=== PATIENT | female | born 1935 | race Caucasian/White ===

== ENCOUNTER 2022-11-26 13:23 | Inpatient (IN) ==
[2022-11-26] MEDS ORDERED: ONDANSETRON 4 MG/2 ML VIAL IV ONE (14:20)
[2022-11-26 14:22] LABS: POC Calcium, Ionized 1.14 (1.16-1.32); POC Creatinine 0.5 (0.6-1.2); POC Potassium 3.2 (3.3-5.1)
[2022-11-26] MEDS ORDERED: 0.9 % SODIUM CHLORIDE 1,000 ML IV ONE (14:52)
[2022-11-26] MEDS ORDERED: morphine 4 MG/ML VIAL IV ONE (14:52)
[2022-11-26] MEDS ORDERED: ZOLPIDEM 5 MG TABLET PO PRN (17:24)
[2022-11-26] MEDS ORDERED: HYDROmorphone 1 MG/ML SYRINGE IV PRN (17:24)
[2022-11-26] MEDS ORDERED: ONDANSETRON 4 MG/2 ML VIAL IV PRN (17:24)
[2022-11-26] MEDS ORDERED: ALPRAZolam 0.5 MG TABLET PO PRN (17:29)
[2022-11-26] MEDS ORDERED: ALTEPLASE 2 MG VIAL IV PRN (17:35)
[2022-11-26] MEDS ORDERED: 0.9 % SODIUM CHLORIDE 10 ML SYRINGE IV PRN (17:35)
[2022-11-26] MEDS: 0.9 % SODIUM CHLORIDE 1,000 ML IV SCH ×2 (17:44→18:42)
[2022-11-26] MEDS ORDERED: 0.9 % SODIUM CHLORIDE 250 ML IV SCH (17:45)
[2022-11-26] MEDS: 0.9 % SODIUM CHLORIDE 10 ML SYRINGE IV SCH ×2 (20:24)
[2022-11-27] MEDS: 0.9 % SODIUM CHLORIDE 1,000 ML IV SCH ×3 (02:57→17:09)
[2022-11-27 07:12] LABS: Basophils # (Auto) 0.03 K/mcL (0.00-0.30); Basophils % (Auto) 0.3 % (0.0-2.0); Eosinophils % (Auto) 1.8 % (0.0-7.0); Hematocrit 32.1 % (34.1-44.9); Hemoglobin 10.2 g/dL (11.2-15.7); Lymphocytes # (Auto) 2.38 K/mcL (1.50-4.80); Lymphocytes % (Auto) 21.7 % (15.5-49.0); Mean Corpuscular HGB Conc 31.8 g/dL (31.0-36.0); Mean Platelet Volume 8.5 fL (8.8-12.5); Monocytes % (Auto) 12.8 % (1.0-12.0); Platelet Count 345 K/mcL (140-440); RBC 3.69 M/mcL (3.59-5.38); Red Cell Distribution Width 17.1 % (11.5-14.5)
[2022-11-27 07:31] LABS: INR 1.1 (0.9-1.1); Partial Thromboplastin Time 32.6 sec (20.0-37.0); Prothrombin Time 14.2 sec (11.9-14.5)
[2022-11-27] MEDS: PANTOPRAZOLE 40 MG VIAL IV SCH ×2 (07:37→17:09)
[2022-11-27] MEDS: 0.9 % SODIUM CHLORIDE 10 ML SYRINGE IV SCH ×5 (07:38→20:19)
[2022-11-27] MEDS: LEVOTHYROXINE 75 MCG TABLET PO SCH (07:38)
[2022-11-27 08:14] LABS: ALT/SGPT 9 U/L (<40); AST/SGOT 16 U/L (<32); Albumin 2.7 gm/dL (3.2-5.2); Albumin/Globulin Ratio 0.8 (1.0-2.3); Alkaline Phosphatase 74 U/L (39-117); Bilirubin,Direct < 0.2 mg/dL (0-0.3); Bilirubin,Total 0.3 mg/dL (0.1-1.0); Blood Urea Nitrogen 6 mg/dL (8-23); Calcium 7.8 mg/dL (8.6-10.4); Carbon Dioxide 24 mmol/L (22-30); Chloride 104 mmol/L (96-108); Globulin 3.6 gm/dL (2.2-3.7); Glomerular Filtration Rate 86; Glucose 97 mg/dL (70-105); Lactate Dehydrogenase 187 U/L (135-225); Phosphorous 2.1 mg/dL (2.5-4.5); Triglycerides 79 mg/dL (<150); Uric Acid 4.4 mg/dL (2.5-8.0)
[2022-11-27] MEDS: LOSARTAN 50 MG TABLET PO SCH (09:18)
[2022-11-27] MEDS: HYDROmorphone 1 MG/ML SYRINGE IV PRN (13:49)
[2022-11-27] MEDS: diphenhydrAMINE 50 MG/ML VIAL IV SCH (20:17)
[2022-11-28] MEDS: 0.9 % SODIUM CHLORIDE 1,000 ML IV SCH ×3 (02:03→17:45)
[2022-11-28] MEDS: 0.9 % SODIUM CHLORIDE 10 ML SYRINGE IV SCH ×5 (05:08→20:26)
[2022-11-28] MEDS: PANTOPRAZOLE 40 MG VIAL IV SCH ×2 (07:41→17:44)
[2022-11-28] MEDS: LEVOTHYROXINE 75 MCG TABLET PO SCH (07:46)
[2022-11-28] MEDS ORDERED: CEFEPIME 2 GM VIAL IV SCH (07:49)
[2022-11-28] MEDS ORDERED: metroNIDAZOLE 500 MG/100 ML BAG IV SCH (07:49)
[2022-11-28] MEDS ORDERED: SCOPOLAMINE 1 PATCH PATCH TOPICAL PRN (09:45)
[2022-11-28] MEDS ORDERED: IPRATROPIUM/ALBUTEROL 3 ML AMPUL.NEB NEB PRN ×2 (09:45→11:42)
[2022-11-28] MEDS ORDERED: PROPOFOL 200 MG/20 ML VIAL IV ONE (09:50)
[2022-11-28] MEDS ORDERED: SUGAMMADEX SODIUM 200 MG/2 ML VIAL IV ONE (09:50)
[2022-11-28] MEDS ORDERED: ROCURONIUM 10 MG/ML ML IV ONE (09:50)
[2022-11-28] MEDS ORDERED: DEXAMETHASONE 10 MG/ML VIAL ONE (09:50)
[2022-11-28] MEDS ORDERED: ePHEDrine 50 MG/5 ML SYRINGE (ANEST) IV ONE (09:50)
[2022-11-28] MEDS ORDERED: MAGNESIUM SULFATE 2 GM/50 ML BAG IV ONE (09:50)
[2022-11-28] MEDS ORDERED: fentaNYL 100 MCG/2 ML VIAL IV ONE (09:50)
[2022-11-28] MEDS ORDERED: KETOROLAC 30 MG/ML VIAL ONE (09:50)
[2022-11-28] MEDS ORDERED: ONDANSETRON 4 MG/2 ML VIAL ONE (09:50)
[2022-11-28] MEDS ORDERED: KETAMINE 50 MG/ML Syringe IV ONE (09:50)
[2022-11-28] MEDS ORDERED: LIDOCAINE HCL/PF 100 MG/5 ML SYRINGE IV ONE (09:50)
[2022-11-28] MEDS ORDERED: GLYCOPYRROLATE 0.2 MG/ML VIAL IV ONE (09:50)
[2022-11-28] MEDS ORDERED: LACTATED RINGERS 250 ML IV PRN (11:42)
[2022-11-28] MEDS ORDERED: ONDANSETRON 4 MG/2 ML VIAL IV PRN (11:42)
[2022-11-28] MEDS ORDERED: PROMETHAZINE 25 MG/ML VIAL IV PRN (11:42)
[2022-11-28] MEDS ORDERED: NALOXONE HCL 0.4 MG/ML VIAL IV PRN (11:42)
[2022-11-28] MEDS ORDERED: MEPERIDINE 25 MG/ML VIAL IV PRN (11:42)
[2022-11-28] MEDS ORDERED: METHOCARBAMOL 1,000 MG/10 ML VIAL IV PRN (11:42)
[2022-11-28] MEDS ORDERED: ACETAMINOPHEN 1,000 MG/100 ML BAG IV ONE (11:42)
[2022-11-28] MEDS ORDERED: LACTATED RINGERS 1,000 ML IV SCH (11:45)
[2022-11-28] MEDS: LOSARTAN 50 MG TABLET PO SCH (11:53)
[2022-11-28] MEDS ORDERED: GENTAMICIN SULFATE 800 MG/20 ML VIAL IR ONE (11:55)
[2022-11-28] MEDS: fentaNYL 100 MCG/2 ML VIAL IV PRN ×3 (13:00→15:54)
[2022-11-28] MEDS: metroNIDAZOLE 500 MG/100 ML BAG IV SCH ×2 (14:19→20:00)
[2022-11-28] MEDS: CEFEPIME 2 GM VIAL IV SCH ×2 (14:19→21:52)
[2022-11-28] MEDS: HYDROmorphone 1 MG/ML SYRINGE IV PRN (14:42)
[2022-11-28 15:28] LABS: ALT/SGPT 9 U/L (<40); AST/SGOT 16 U/L (<32); Albumin 2.7 gm/dL (3.2-5.2); Albumin/Globulin Ratio 0.8 (1.0-2.3); Alkaline Phosphatase 70 U/L (39-117); Bilirubin,Direct < 0.2 mg/dL (0-0.3); Bilirubin,Total 0.3 mg/dL (0.1-1.0); Blood Urea Nitrogen 4 mg/dL (8-23); Calcium 7.1 mg/dL (8.6-10.4); Carbon Dioxide 27 mmol/L (22-30); Chloride 106 mmol/L (96-108); Globulin 3.3 gm/dL (2.2-3.7); Glomerular Filtration Rate 86; Glucose 165 mg/dL (70-105); Lactate Dehydrogenase 208 U/L (135-225); Phosphorous 1.6 mg/dL (2.5-4.5); Triglycerides 72 mg/dL (<150); Uric Acid 3.9 mg/dL (2.5-8.0)
[2022-11-28] MEDS: diphenhydrAMINE 50 MG/ML VIAL IV SCH (20:25)
[2022-11-29] MEDS: 0.9 % SODIUM CHLORIDE 1,000 ML IV SCH ×3 (00:10→17:43)
[2022-11-29] MEDS: metroNIDAZOLE 500 MG/100 ML BAG IV SCH ×5 (00:10→23:47)
[2022-11-29] MEDS: fentaNYL 100 MCG/2 ML VIAL IV PRN ×9 (00:30→23:31)
[2022-11-29] MEDS: CEFEPIME 2 GM VIAL IV SCH ×3 (06:01→21:55)
[2022-11-29] MEDS: 0.9 % SODIUM CHLORIDE 10 ML SYRINGE IV SCH ×5 (06:01→20:28)
[2022-11-29 06:35] LABS: Basophils # (Auto) 0.02 K/mcL (0.00-0.30); Basophils % (Auto) 0.1 % (0.0-2.0); Eosinophils # (Auto) 0 K/mcL (0.00-0.70); Eosinophils % (Auto) 0 % (0.0-7.0); Hematocrit 32.1 % (34.1-44.9); Hemoglobin 9.9 g/dL (11.2-15.7); Lymphocytes # (Auto) 1.77 K/mcL (1.50-4.80); Lymphocytes % (Auto) 9.6 % (15.5-49.0); Mean Cell Volume 89.2 fL (80.0-100.0); Mean Corpuscular HGB Conc 30.8 g/dL (31.0-36.0); Mean Platelet Volume 9.1 fL (8.8-12.5); Monocytes # (Auto) 1.35 K/mcL (0.10-0.90); Monocytes % (Auto) 7.3 % (1.0-12.0); Neutrophils % (Auto) 82.5 % (38.0-78.0); Platelet Count 323 K/mcL (140-440); Red Cell Distribution Width 17.6 % (11.5-14.5); WBC 18.4 K/mcL (4.5-11.0)
[2022-11-29 07:06] LABS: ALT/SGPT 8 U/L (<40); AST/SGOT 14 U/L (<32); Albumin 2.6 gm/dL (3.2-5.2); Albumin/Globulin Ratio 0.8 (1.0-2.3); Alkaline Phosphatase 62 U/L (39-117); Bilirubin,Direct < 0.2 mg/dL (0-0.3); Bilirubin,Total 0.3 mg/dL (0.1-1.0); Blood Urea Nitrogen 7 mg/dL (8-23); Calcium 6.7 mg/dL (8.6-10.4); Carbon Dioxide 24 mmol/L (22-30); Chloride 108 mmol/L (96-108); Globulin 3.1 gm/dL (2.2-3.7); Glomerular Filtration Rate 86; Glucose 132 mg/dL (70-105); Lactate Dehydrogenase 182 U/L (135-225); Phosphorous 1.6 mg/dL (2.5-4.5); Triglycerides 43 mg/dL (<150); Uric Acid 3.9 mg/dL (2.5-8.0)
[2022-11-29] MEDS: PANTOPRAZOLE 40 MG VIAL IV SCH ×2 (07:19→16:56)
[2022-11-29] MEDS: LEVOTHYROXINE 100 MCG VIAL IV SCH (07:19)
[2022-11-29] MEDS: LOSARTAN 50 MG TABLET PO SCH (11:36)
[2022-11-29] MEDS: POTASSIUM PHOSPHATE 40 MEQ in DEXTROSE 5% IN WATER 500 ML IV SCH ×2 (15:02→19:30)
[2022-11-29] MEDS: CALCIUM GLUCONATE 9.3 MEQ in DEXTROSE 5% IN WATER 100 ML IV SCH (16:56)
[2022-11-29] MEDS ORDERED: POTASSIUM PHOSPHATE 66 MEQ/15 ML VIAL IV ONE (18:39)
[2022-11-29] MEDS: diphenhydrAMINE 50 MG/ML VIAL IV SCH (20:04)
[2022-11-30] MEDS: fentaNYL 100 MCG/2 ML VIAL IV PRN ×6 (01:36→17:11)
[2022-11-30] MEDS: 0.9 % SODIUM CHLORIDE 1,000 ML IV SCH ×5 (01:51→15:52)
[2022-11-30] MEDS: CEFEPIME 2 GM VIAL IV SCH ×3 (05:24→22:21)
[2022-11-30] MEDS: 0.9 % SODIUM CHLORIDE 10 ML SYRINGE IV SCH ×5 (05:24→22:22)
[2022-11-30] MEDS: metroNIDAZOLE 500 MG/100 ML BAG IV SCH ×3 (05:24→19:33)
[2022-11-30 06:56] LABS: Basophils # (Auto) 0.05 K/mcL (0.00-0.30); Basophils % (Auto) 0.3 % (0.0-2.0); Eosinophils # (Auto) 0.13 K/mcL (0.00-0.70); Eosinophils % (Auto) 0.9 % (0.0-7.0); Hematocrit 29.9 % (34.1-44.9); Hemoglobin 9.3 g/dL (11.2-15.7); Lymphocytes # (Auto) 2.76 K/mcL (1.50-4.80); Mean Cell Volume 87.7 fL (80.0-100.0); Mean Corpuscular HGB Conc 31.1 g/dL (31.0-36.0); Mean Platelet Volume 9.1 fL (8.8-12.5); Monocytes # (Auto) 1.32 K/mcL (0.10-0.90); Monocytes % (Auto) 9.1 % (1.0-12.0); Neutrophils % (Auto) 70.1 % (38.0-78.0); Platelet Count 294 K/mcL (140-440); RBC 3.41 M/mcL (3.59-5.38); Red Cell Distribution Width 17.8 % (11.5-14.5); WBC 14.5 K/mcL (4.5-11.0)
[2022-11-30] MEDS: PANTOPRAZOLE 40 MG VIAL IV SCH ×2 (07:15→17:11)
[2022-11-30] MEDS: LEVOTHYROXINE 100 MCG VIAL IV SCH (07:15)
[2022-11-30 07:28] LABS: ALT/SGPT 8 U/L (<40); AST/SGOT 14 U/L (<32); Albumin 2.5 gm/dL (3.2-5.2); Albumin/Globulin Ratio 0.8 (1.0-2.3); Alkaline Phosphatase 61 U/L (39-117); Bilirubin,Direct < 0.2 mg/dL (0-0.3); Bilirubin,Total 0.3 mg/dL (0.1-1.0); Blood Urea Nitrogen 6 mg/dL (8-23); Calcium 6.8 mg/dL (8.6-10.4); Carbon Dioxide 24 mmol/L (22-30); Chloride 104 mmol/L (96-108); Globulin 3.2 gm/dL (2.2-3.7); Glomerular Filtration Rate 93; Glucose 89 mg/dL (70-105); Lactate Dehydrogenase 199 U/L (135-225); Phosphorous 1.1 mg/dL (2.5-4.5); Triglycerides 56 mg/dL (<150); Uric Acid 3.3 mg/dL (2.5-8.0)
[2022-11-30] MEDS ORDERED: CALCIUM GLUCONATE 4.65 MEQ/10 ML VIAL IV SCH (09:00)
[2022-11-30] MEDS: LOSARTAN 50 MG TABLET PO SCH (10:13)
[2022-11-30] MEDS ORDERED: METOPROLOL TARTRATE 5 MG/5 ML VIAL IV PRN (14:27)
[2022-11-30] MEDS: CALCIUM GLUCONATE 9.3 MEQ in DEXTROSE 5% IN WATER 100 ML IV SCH (15:51)
[2022-11-30] MEDS: POTASSIUM PHOSPHATE 40 MEQ in DEXTROSE 5% IN WATER 500 ML IV SCH ×2 (15:51→23:28)
[2022-11-30] MEDS: BENZOCAINE/MENTHOL 1 LOZENGE PO PRN (16:01)
[2022-11-30] MEDS: METOCLOPRAMIDE 10 MG/2 ML VIAL IV SCH ×2 (19:14→23:29)
[2022-11-30] MEDS: diphenhydrAMINE 50 MG/ML VIAL IV SCH (22:21)
[2022-12-01] MEDS: metroNIDAZOLE 500 MG/100 ML BAG IV SCH ×5 (00:11→23:48)
[2022-12-01] MEDS: fentaNYL 100 MCG/2 ML VIAL IV PRN ×2 (00:15→06:43)
[2022-12-01] MEDS: METOCLOPRAMIDE 10 MG/2 ML VIAL IV SCH ×4 (05:13→23:48)
[2022-12-01] MEDS: 0.9 % SODIUM CHLORIDE 10 ML SYRINGE IV SCH ×5 (05:14→20:49)
[2022-12-01] MEDS: CEFEPIME 2 GM VIAL IV SCH ×3 (05:14→20:49)
[2022-12-01 06:53] LABS: Basophils # (Auto) 0.03 K/mcL (0.00-0.30); Basophils % (Auto) 0.2 % (0.0-2.0); Eosinophils # (Auto) 0.06 K/mcL (0.00-0.70); Eosinophils % (Auto) 0.4 % (0.0-7.0); Hemoglobin 10.4 g/dL (11.2-15.7); Lymphocytes # (Auto) 1.75 K/mcL (1.50-4.80); Lymphocytes % (Auto) 13.1 % (15.5-49.0); Mean Cell Volume 86.8 fL (80.0-100.0); Mean Corpuscular HGB Conc 31.5 g/dL (31.0-36.0); Mean Platelet Volume 8.9 fL (8.8-12.5); Neutrophils % (Auto) 73.9 % (38.0-78.0); Platelet Count 289 K/mcL (140-440); Red Cell Distribution Width 17.7 % (11.5-14.5); WBC 13.4 K/mcL (4.5-11.0)
[2022-12-01] MEDS: LEVOTHYROXINE 100 MCG VIAL IV SCH (07:03)
[2022-12-01] MEDS: PANTOPRAZOLE 40 MG VIAL IV SCH ×2 (07:03→17:44)
[2022-12-01 07:18] LABS: ALT/SGPT 8 U/L (<40); AST/SGOT 14 U/L (<32); Albumin 2.5 gm/dL (3.2-5.2); Albumin/Globulin Ratio 0.7 (1.0-2.3); Alkaline Phosphatase 69 U/L (39-117); Bilirubin,Direct < 0.2 mg/dL (0-0.3); Bilirubin,Total 0.5 mg/dL (0.1-1.0); Blood Urea Nitrogen 5 mg/dL (8-23); Calcium 7.1 mg/dL (8.6-10.4); Carbon Dioxide 24 mmol/L (22-30); Chloride 100 mmol/L (96-108); Globulin 3.5 gm/dL (2.2-3.7); Glomerular Filtration Rate 93; Glucose 121 mg/dL (70-105); Lactate Dehydrogenase 240 U/L (135-225); Phosphorous 2.1 mg/dL (2.5-4.5); Triglycerides 48 mg/dL (<150); Uric Acid 2.8 mg/dL (2.5-8.0)
[2022-12-01] MEDS: LOSARTAN 50 MG TABLET PO SCH (09:21)
[2022-12-01] MEDS: BENZOCAINE/MENTHOL 1 LOZENGE PO PRN (09:21)
[2022-12-01] MEDS ORDERED: ACETAMINOPHEN 650 MG/65 ML BAG IV PRN (10:17)
[2022-12-01] MEDS: ACETAMINOPHEN 1,000 MG/100 ML BAG IV PRN ×2 (10:29→17:44)
[2022-12-01] MEDS: POTASSIUM PHOSPHATE 40 MEQ in DEXTROSE 5% IN WATER 500 ML IV SCH ×2 (11:04→15:37)
[2022-12-01] MEDS: 0.9 % SODIUM CHLORIDE 1,000 ML IV SCH ×2 (12:02→17:51)
[2022-12-01] MEDS: CALCIUM GLUCONATE 9.3 MEQ in DEXTROSE 5% IN WATER 100 ML IV SCH (14:06)
[2022-12-01] MEDS: diphenhydrAMINE 50 MG/ML VIAL IV SCH (20:56)
[2022-12-02] MEDS: fentaNYL 100 MCG/2 ML VIAL IV PRN ×2 (01:33→17:14)
[2022-12-02] MEDS: metroNIDAZOLE 500 MG/100 ML BAG IV SCH ×3 (05:10→17:41)
[2022-12-02] MEDS: METOCLOPRAMIDE 10 MG/2 ML VIAL IV SCH ×3 (05:10→17:23)
[2022-12-02] MEDS: CEFEPIME 2 GM VIAL IV SCH ×3 (05:10→21:29)
[2022-12-02] MEDS: 0.9 % SODIUM CHLORIDE 10 ML SYRINGE IV SCH ×3 (05:11→21:30)
[2022-12-02] MEDS: 0.9 % SODIUM CHLORIDE 1,000 ML IV SCH ×2 (05:18→18:58)
[2022-12-02 06:27] LABS: ALT/SGPT 8 U/L (<40); AST/SGOT 12 U/L (<32); Albumin 2.2 gm/dL (3.2-5.2); Albumin/Globulin Ratio 0.6 (1.0-2.3); Alkaline Phosphatase 53 U/L (39-117); Bilirubin,Direct < 0.2 mg/dL (0-0.3); Bilirubin,Total 0.4 mg/dL (0.1-1.0); Blood Urea Nitrogen 6 mg/dL (8-23); Calcium 7.3 mg/dL (8.6-10.4); Carbon Dioxide 24 mmol/L (22-30); Chloride 106 mmol/L (96-108); Globulin 3.4 gm/dL (2.2-3.7); Glomerular Filtration Rate 93; Glucose 103 mg/dL (70-105); Lactate Dehydrogenase 172 U/L (135-225); Phosphorous 1.2 mg/dL (2.5-4.5); Triglycerides 48 mg/dL (<150); Uric Acid 2.5 mg/dL (2.5-8.0)
[2022-12-02] MEDS: PANTOPRAZOLE 40 MG VIAL IV SCH ×2 (06:54→17:14)
[2022-12-02] MEDS: LEVOTHYROXINE 100 MCG VIAL IV SCH (06:54)
[2022-12-02] MEDS: ACETAMINOPHEN 1,000 MG/100 ML BAG IV PRN (06:55)
[2022-12-02] MEDS: LOSARTAN 50 MG TABLET PO SCH (09:22)
[2022-12-02] MEDS: POTASSIUM PHOSPHATE 40 MEQ in DEXTROSE 5% IN WATER 500 ML IV SCH ×2 (13:29→18:59)
[2022-12-02] MEDS: diphenhydrAMINE 50 MG/ML VIAL IV SCH (20:32)
[2022-12-03] MEDS: METOCLOPRAMIDE 10 MG/2 ML VIAL IV SCH ×4 (00:52→17:35)
[2022-12-03] MEDS: metroNIDAZOLE 500 MG/100 ML BAG IV SCH ×4 (00:52→17:35)
[2022-12-03] MEDS: 0.9 % SODIUM CHLORIDE 10 ML SYRINGE IV SCH ×3 (05:31→23:52)
[2022-12-03] MEDS: CEFEPIME 2 GM VIAL IV SCH ×3 (05:31→23:59)
[2022-12-03 06:20] LABS: Basophils # (Auto) 0.04 K/mcL (0.00-0.30); Basophils % (Auto) 0.3 % (0.0-2.0); Eosinophils # (Auto) 0.16 K/mcL (0.00-0.70); Eosinophils % (Auto) 1.2 % (0.0-7.0); Hematocrit 36.4 % (34.1-44.9); Hemoglobin 10.9 g/dL (11.2-15.7); Lymphocytes # (Auto) 3.13 K/mcL (1.50-4.80); Lymphocytes % (Auto) 23.6 % (15.5-49.0); Mean Cell Volume 90.8 fL (80.0-100.0); Mean Corpuscular HGB Conc 29.9 g/dL (31.0-36.0); Mean Platelet Volume 9.1 fL (8.8-12.5); Monocytes # (Auto) 1.26 K/mcL (0.10-0.90); Monocytes % (Auto) 9.5 % (1.0-12.0); Neutrophils % (Auto) 64.8 % (38.0-78.0); Platelet Count 358 K/mcL (140-440); RBC 4.01 M/mcL (3.59-5.38); Red Cell Distribution Width 18.3 % (11.5-14.5); WBC 13.3 K/mcL (4.5-11.0)
[2022-12-03 06:47] LABS: ALT/SGPT 9 U/L (<40); AST/SGOT 12 U/L (<32); Albumin 2.5 gm/dL (3.2-5.2); Albumin/Globulin Ratio 0.6 (1.0-2.3); Alkaline Phosphatase 62 U/L (39-117); Bilirubin,Direct < 0.2 mg/dL (0-0.3); Bilirubin,Total 0.5 mg/dL (0.1-1.0); Blood Urea Nitrogen 5 mg/dL (8-23); Calcium 7.4 mg/dL (8.6-10.4); Carbon Dioxide 23 mmol/L (22-30); Chloride 104 mmol/L (96-108); Glomerular Filtration Rate 93; Glucose 102 mg/dL (70-105); Lactate Dehydrogenase 219 U/L (135-225); Phosphorous 1.2 mg/dL (2.5-4.5); Triglycerides 86 mg/dL (<150); Uric Acid 2.1 mg/dL (2.5-8.0)
[2022-12-03] MEDS: PANTOPRAZOLE 40 MG VIAL IV SCH ×2 (09:25→17:35)
[2022-12-03] MEDS: LEVOTHYROXINE 100 MCG VIAL IV SCH (09:25)
[2022-12-03] MEDS: LOSARTAN 50 MG TABLET PO SCH (09:25)
[2022-12-03] MEDS: 0.9 % SODIUM CHLORIDE 1,000 ML IV SCH ×2 (09:54→23:29)
[2022-12-03] MEDS: NEUTRA PHOS 1 PACKET PO SCH (15:54)
[2022-12-03] MEDS: diphenhydrAMINE 50 MG/ML VIAL IV SCH (23:53)
[2022-12-04] MEDS: METOCLOPRAMIDE 10 MG/2 ML VIAL IV SCH ×4 (00:28→18:02)
[2022-12-04] MEDS: ACETAMINOPHEN 1,000 MG/100 ML BAG IV PRN (00:42)
[2022-12-04] MEDS: metroNIDAZOLE 500 MG/100 ML BAG IV SCH ×4 (01:30→18:01)
[2022-12-04 06:06] LABS: Basophils # (Auto) 0.03 K/mcL (0.00-0.30); Basophils % (Auto) 0.4 % (0.0-2.0); Eosinophils # (Auto) 0.15 K/mcL (0.00-0.70); Eosinophils % (Auto) 1.8 % (0.0-7.0); Hematocrit 28.7 % (34.1-44.9); Hemoglobin 9.2 g/dL (11.2-15.7); Lymphocytes # (Auto) 2.04 K/mcL (1.50-4.80); Lymphocytes % (Auto) 24.1 % (15.5-49.0); Mean Cell Volume 83.9 fL (80.0-100.0); Mean Corpuscular HGB Conc 32.1 g/dL (31.0-36.0); Mean Platelet Volume 9.3 fL (8.8-12.5); Monocytes # (Auto) 1.03 K/mcL (0.10-0.90); Monocytes % (Auto) 12.2 % (1.0-12.0); Neutrophils % (Auto) 61.1 % (38.0-78.0); Platelet Count 330 K/mcL (140-440); RBC 3.42 M/mcL (3.59-5.38); Red Cell Distribution Width 17.5 % (11.5-14.5); WBC 8.5 K/mcL (4.5-11.0)
[2022-12-04] MEDS: 0.9 % SODIUM CHLORIDE 10 ML SYRINGE IV SCH ×3 (06:13→20:41)
[2022-12-04 06:33] LABS: ALT/SGPT 7 U/L (<40); AST/SGOT 10 U/L (<32); Albumin 2.2 gm/dL (3.2-5.2); Albumin/Globulin Ratio 0.7 (1.0-2.3); Alkaline Phosphatase 50 U/L (39-117); Bilirubin,Direct < 0.2 mg/dL (0-0.3); Bilirubin,Total 0.3 mg/dL (0.1-1.0); Blood Urea Nitrogen 5 mg/dL (8-23); Calcium 6.9 mg/dL (8.6-10.4); Carbon Dioxide 23 mmol/L (22-30); Chloride 105 mmol/L (96-108); Globulin 3.3 gm/dL (2.2-3.7); Glomerular Filtration Rate 93; Glucose 106 mg/dL (70-105); Lactate Dehydrogenase 160 U/L (135-225); Phosphorous 1.1 mg/dL (2.5-4.5); Triglycerides 87 mg/dL (<150); Uric Acid 2.3 mg/dL (2.5-8.0)
[2022-12-04] MEDS: CEFEPIME 2 GM VIAL IV SCH ×3 (07:15→22:56)
[2022-12-04] MEDS: LEVOTHYROXINE 100 MCG VIAL IV SCH (07:15)
[2022-12-04] MEDS: PANTOPRAZOLE 40 MG VIAL IV SCH ×2 (07:16→18:02)
[2022-12-04] MEDS: LOSARTAN 50 MG TABLET PO SCH (08:58)
[2022-12-04] MEDS: NEUTRA PHOS 1 PACKET PO SCH ×2 (08:59→20:41)
[2022-12-04] MEDS: 0.9 % SODIUM CHLORIDE 1,000 ML IV SCH ×2 (12:24→15:04)
[2022-12-04] MEDS ORDERED: NEUTRA PHOS 1 PACKET PO SCH (15:12)
[2022-12-04] MEDS: diphenhydrAMINE 50 MG/ML VIAL IV SCH (20:41)
[2022-12-05] MEDS: HYDROmorphone 1 MG/ML SYRINGE IV PRN (00:51)
[2022-12-05] MEDS: METOCLOPRAMIDE 10 MG/2 ML VIAL IV SCH ×4 (00:53→16:58)
[2022-12-05] MEDS: metroNIDAZOLE 500 MG/100 ML BAG IV SCH ×4 (00:53→17:00)
[2022-12-05] MEDS: BENZOCAINE/MENTHOL 1 LOZENGE PO PRN (01:08)
[2022-12-05] MEDS: 0.9 % SODIUM CHLORIDE 10 ML SYRINGE IV SCH ×6 (06:03→21:17)
[2022-12-05] MEDS: CEFEPIME 2 GM VIAL IV SCH ×3 (06:03→21:17)
[2022-12-05 06:47] LABS: Basophils # (Auto) 0.04 K/mcL (0.00-0.30); Basophils % (Auto) 0.5 % (0.0-2.0); Eosinophils # (Auto) 0.26 K/mcL (0.00-0.70); Eosinophils % (Auto) 3.2 % (0.0-7.0); Hematocrit 31.5 % (34.1-44.9); Hemoglobin 9.8 g/dL (11.2-15.7); Lymphocytes # (Auto) 2.34 K/mcL (1.50-4.80); Lymphocytes % (Auto) 28.9 % (15.5-49.0); Mean Corpuscular HGB Conc 31.1 g/dL (31.0-36.0); Mean Platelet Volume 9.2 fL (8.8-12.5); Monocytes # (Auto) 1.02 K/mcL (0.10-0.90); Monocytes % (Auto) 12.6 % (1.0-12.0); Neutrophils % (Auto) 54.3 % (38.0-78.0); Platelet Count 388 K/mcL (140-440); RBC 3.58 M/mcL (3.59-5.38); Red Cell Distribution Width 18.3 % (11.5-14.5); WBC 8.1 K/mcL (4.5-11.0)
[2022-12-05] MEDS: LEVOTHYROXINE 100 MCG VIAL IV SCH (07:31)
[2022-12-05] MEDS: PANTOPRAZOLE 40 MG VIAL IV SCH ×2 (07:31→16:58)
[2022-12-05] MEDS: LOSARTAN 50 MG TABLET PO SCH (08:58)
[2022-12-05] MEDS: NEUTRA PHOS 1 PACKET PO SCH ×2 (08:59→21:17)
[2022-12-05] MEDS ORDERED: oxyCODONE IR 5 MG TABLET PO PRN (16:17)
[2022-12-05] MEDS: diphenhydrAMINE 50 MG/ML VIAL IV SCH (21:17)
[2022-12-06] MEDS: METOCLOPRAMIDE 10 MG/2 ML VIAL IV SCH ×2 (00:38→06:05)
[2022-12-06] MEDS: metroNIDAZOLE 500 MG/100 ML BAG IV SCH ×2 (00:38→06:05)
[2022-12-06] MEDS: CEFEPIME 2 GM VIAL IV SCH (06:04)
[2022-12-06] MEDS: 0.9 % SODIUM CHLORIDE 10 ML SYRINGE IV SCH (06:05)
[2022-12-06] MEDS: PANTOPRAZOLE 40 MG VIAL IV SCH (06:49)
[2022-12-06] MEDS: LEVOTHYROXINE 100 MCG VIAL IV SCH (06:49)
[2022-12-06] MEDS: LOSARTAN 50 MG TABLET PO SCH (08:03)
[2022-12-06] MEDS: NEUTRA PHOS 1 PACKET PO SCH (08:03)
== END 2022-12-06 09:45 | DRG 330 ==
LOC: ED 13:23 → MEDSUR 18:37 → ICU 11-28 13:31 → MEDSUR 12-03 11:26
PROVIDERS: ADMIT Family Medicine Adult Medicine; ATTEND Family Medicine Adult Medicine